=== PATIENT | female | born 1970 | race Caucasian/White ===

== ENCOUNTER 2018-06-26 21:18 | Emergency (ER) | payer OTHER ==
[2018-06-26 21:35] VITALS: TEMP 98.4
[2018-06-26] MEDS ORDERED: LISINOPRIL 10 MG TAB PO STA (22:30)
[2018-06-26] MEDS ORDERED: HYDROCHLOROTHIAZIDE 25 MG TAB PO STA (22:30)
[2018-06-26] MEDS ORDERED: KETOROLAC 30 MG/ML 1 ML VIAL IM STA (22:30)
--- NOTE | 2018-06-26 23:26 | ED ---
Headache HPI - General Chief Complaint: Headache Stated Complaint: High BP, Head Pain Time Seen by Provider: 06/26/18 21:57 Mode of arrival: ambulatory Limitations: no limitations - History of Present Illness Initial Comments: 47-year-old female patient presents to the emergency department today for evaluation of elevated blood pressure and headache. Patient states that she has been out of her blood pressure medication for the last 2 days. Patient states today when she went to [facility] prescriptions her blood pressure is in the 180s systolic and 120s diastolic. Patient states she did develop a frontal headache today. Denies any blurred or double vision. Denies any light or sound sensitivity. Denies any nausea or vomiting with this. Patient states when her blood pressure is elevated she generally does get headaches. Patient states she did not take her medication today. She denies any numbness, tingling, or weakness to her extremities. Denies any dizziness or weakness. Patient denies any recent rash, fever, chills, shortness breath, chest pain, abdominal pain, nausea, vomiting, diarrhea, constipation, back pain, hematuria, dysuria, urinary urgency, urinary frequency, or any other complaints. - Related Data Home Medications Medication Instructions Recorded Confirmed DULoxetine HCL [Cymbalta] 120 mg PO DAILY 06/26/18 06/26/18 Hydrochlorothiazide [Hydrodiuril] 25 mg PO DAILY 06/26/18 06/26/18 Lisinopril [Zestril] 10 mg PO DAILY 06/26/18 06/26/18 Pantoprazole Sodium [Protonix] 40 mg PO BID 06/26/18 06/26/18 traZODone HCL 100 mg PO HS 06/26/18 06/26/18 Previous Rx's Medication Instructions Recorded Hydrochlorothiazide 25 mg PO DAILY #30 tablet 06/26/18 Allergies Allergy/AdvReac Type Severity Reaction Status Date / Time No Known Allergies Allergy Verified 06/26/18 21:40 Review of Systems ROS Statement: Those systems with pertinent positive or pertinent negative responses have been documented in the HPI. ROS Other: All systems not noted in ROS Statement are negative. Past Medical History Past Medical History: CVA/TIA, Diabetes Mellitus, GERD/Reflux, Hypertension History of Any Multi-Drug Resistant Organisms: None Reported Past Surgical History: Appendectomy, Cholecystectomy, Hysterectomy, Tonsillectomy Past Psychological History: PTSD Smoking Status: Never smoker Past Alcohol Use History: Occasional Past Drug Use History: None Reported General Exam Limitations: no limitations General appearance: alert, in no apparent distress, other (This well-developed, well-nourished adult female patient in no acute distress. Vital signs upon presentation are temperature 98.4F, pulse 74, respirations 20, blood pressure 160/99, pulse ox 97% on room air.) Eye exam: Present: normal appearance, PERRL, EOMI. Absent: scleral icterus, conjunctival injection, nystagmus, periorbital swelling ENT exam: Present: normal exam, normal oropharynx, mucous membranes moist Respiratory exam: Present: normal lung sounds bilaterally. Absent: respiratory distress, wheezes, rales, rhonchi, stridor Cardiovascular Exam: Present: regular rate, normal rhythm, normal heart sounds. Absent: systolic murmur, diastolic murmur, rubs, gallop, clicks GI/Abdominal exam: Present: soft, normal bowel sounds. Absent: distended, tenderness, guarding, rebound, rigid Neurological exam: Present: alert, oriented X3, CN II-XII intact, other (Strength in all 4 extremities is 5/5) Psychiatric exam: Present: normal affect, normal mood Skin exam: Present: warm, dry, intact, normal color. Absent: rash Course Vital Signs 06/26/18 06/27/18 21:30 00:02 Temperature 98.4 F Pulse Rate 74 70 Respiratory 20 16 Rate Blood Pressure 160/99 126/78 O2 Sat by Pulse 97 Oximetry Medical Decision Making - Medical Decision Making 47-year-old female patient presents to the emergency department today for evaluation of headache and elevated blood pressure. Physical examination is unremarkable. She is neurologically intact with no focal deficits. Patient did admit to not taking her medications for the last 2 days. She was given her doses of blood pressure medication here in the department. Blood pressures did improve. Headache did improve. She'll be discharged this on follow up with her primary care physician for recheck as soon as possible. Return parameters discussed in detail. She verbalizes understanding and agrees this plan. Disposition Clinical Impression: Headache, Hypertension Disposition: HOME SELF-CARE Condition: Good Instructions (If sedation given, give patient instructions): Acute Headache (ED), Hypertension (ED) Additional Instructions: Follow-up through primary care physician for recheck as soon as possible. Take medications as directed. Return to emergency department immediately for any new, worsening, or concerning symptoms Prescriptions: Hydrochlorothiazide 25 mg PO DAILY #30 tablet Is patient prescribed a controlled substance at d/c from ED?: No Referrals: Nonstaff,Physician [Primary Care Provider] - 1-2 days Time of Disposition: 23:26
[2018-06-27 00:03] VITALS: BP 126/78; PULSE 70; RESP 16
== END 2018-06-27 00:02 | disposition home or self-care (01) ==
LOC: EC 21:18
DX: I10 Essential (primary) hypertension (principal); K21.9 Gastro-esophageal reflux disease without esophagitis; Z79.899 Other long term (current) drug therapy; Z86.73 Personal history of transient ischemic attack (TIA), and cerebral infarction without residual deficits
CPT/HCPCS: 99283; 96372; J1885